=== PATIENT | male | born 1985 | race Caucasian/White ===

== ENCOUNTER → 2019-06-21 12:57 | Outpatient (POV) | payer SELFPAY | PROVIDERS: Visit Provider Dermatology | DX: Z00.00 Encounter for general adult medical examination without abnormal findings (principal) ==

== ENCOUNTER 2020-08-18 22:27 | Emergency (ER) | payer SELFPAY ==
[2020-08-18 22:28] VITALS: BP 128/67; PULSE 72; RESP 16; TEMP 36.7; O2SAT 97; BMI 39.0
--- NOTE | 2020-08-18 22:43 | PC.NURSE ---
spoke with jose at poison control. was advised if patient had only taken one extra dose of meds then he would be ok. vss. advised to tell doc and parents patient would be just a little sleepy
[2020-08-18 22:58] LABS: Basophils # 0.1 K/mm3 (0-0.2); Basophils % 0.9 % (0.1-2.0); Eosinophils # 0.4 K/mm3 (0.0-0.4); Eosinophils % 4.4 % (0.1-12.0); Hematocrit 41.8 % (42.0-52.0); Hemoglobin 12.8 g/dL (14.1-18.0); Lymphocytes # 2.1 K/mm3 (0.7-4.5); Lymphocytes % 23.6 % (10-50); Mean Corpuscular HGB Conc 30.6 g/dL (31.8-35.4); Mean Corpuscular Hemoglobin 23.5 pg (27.0-31.2); Mean Corpuscular Volume 76.8 fl (80-94); Mean Platelet Volume 7.2 fl (7.4-10.4); Monocytes # 0.7 K/mm3 (0.1-1.0); Monocytes % 7.8 % (1.7-9.3); Neutrophils # 5.8 K/mm3 (1.8-7.8); Neutrophils % 63.4 % (37.0-80.0); Platelet Count 325 K/mm3 (142-424); Red Blood Count 5.44 M/mm3 (4.60-6.20); Red Cell Distribution Width 18.8 % (11.5-17.5); White Blood Count 9.1 K/mm3 (4.8-10.8)
[2020-08-18 23:04] LABS: Alanine Aminotransferase 12 U/L (12-78); Albumin Level 4.3 g/dl (3.5-5.0); Albumin/Globulin Ratio 1.3 (1.1-1.8); Alkaline Phosphatase 147 U/L (38-126); Anion Gap 11.3 mEq/L (5-15); Aspartate Amino Transferase 27 U/L (17-59); Bilirubin,Total 0.2 mg/dl (0.2-1.3); Blood Urea Nitrogen 17 mg/dl (9-20); Calcium 9.3 mg/dl (8.4-10.2); Carbon Dioxide 29 mmol/L (22.0-30.0); Chloride 106 mmol/L (98-107); Creatinine Clearance Estimated 151 mL/min (50-200); Estimated Glomerular Filt Rate 98 ml/min (>60); GFR (African American) 118 ML/MIN (>60); Globulin 3.4 g/dL (1.3-3.2); Glucose 104 mg/dl (74-100); Potassium 4.3 mmoL/L (3.5-5.1); Sodium 142 mmol/L (136-145); Total Protein,Serum 7.7 g/dl (6.3-8.2)
--- NOTE | 2020-08-18 23:16 | [facility].EDOD ---
ED Disposition Clinical Impression: Accidental medication error Qualifiers: Encounter type: initial encounter Qualified Code(s): T50.901A - Poisoning by unspecified drugs, medicaments and biological substances, accidental (unintentional), initial encounter Disposition: Home, Self-Care Condition on Discharge: Good Instructions: Tips for Safely Using Medications Additional Instructions: see pcp for follow up Referrals: Jose C Williamson [Primary Care Provider] - - Critical Care Critical Care Time: No Attestation: On 08/18/20, the high probability of a clinically significant, sudden or life threatening deterioration of the following system(s) required my full and direct attention, intervention and personal management. The time I documented below is in addition to time spent performing reported procedures but includes the following listed in this critical care notation. Medical Decision Making - Medical Records Medical records reviewed: Yes: I reviewed the patient's medical records. - Reymundo Inquiry Pt receiving controlled substance: No Vital Signs: 08/18/20 22:28 Temperature 98.1 F Temperature Source Oral Pulse Rate [Left Radial] 72 Respiratory Rate 16 Blood Pressure [Right Arm] 128/67 Blood Pressure Mean [Right Arm] 87 Blood Pressure Source [Right Arm] Automatic Cuff Blood Pressure Position [Right Arm] Sitting 02 Sat by Pulse Oximetry 97 Oxygen Delivery Method Room Air - Lab Data Lab results reviewed: Yes: I reviewed the patient's lab results. Lab Results 08/18/20 22:52: WBC 9.1, RBC 5.44, Hgb 12.8 L, Hct 41.8 L, MCV 76.8 L, MCH 23.5 L, MCHC 30.6 L, RDW 18.8 H, Plt Count 325, MPV 7.2 L, Neut % (Auto) 63.4, Lymph % (Auto) 23.6, [place] % (Auto) 7.8, Eos % (Auto) 4.4, Baso % (Auto) 0.9, Neut # (Auto) 5.8, Lymph # (Auto) 2.1, [place] # (Auto) 0.7, Eos # (Auto) 0.4, Baso # (Auto) 0.1 08/18/20 22:52: Sodium 142, Potassium 4.3, Chloride 106, Carbon Dioxide 29, Anion Gap 11.3, BUN 17, Creatinine 0.90, Estimated Creat Clear 151, Estimated GFR 98, Est GFR ( Amer) 118, Glucose 104 H, Calcium 9.3, Total Bilirubin 0.2, AST 27, ALT 12, Alkaline Phosphatase 147 H, Total Protein 7.7, Albumin 4.3, Globulin 3.4 H, Albumin/Globulin Ratio 1.3 Result diagrams: 08/18/20 22:52 08/18/20 22:52 Overdose HPI - General Chief Complaint: Overdose Stated Complaint: Overdose Time Seen by Provider: 08/18/20 23:16 Mode of Arrival: Wheelchair Source of Information: Patient, Parent(s), Medical Record Limitations: No Limitations Description of Symptoms (Recalled from ER Triage Doc. by RN): pt mother stated her and the pts sister accidentally gave him an extra dose of his phenobarbital tonight - History of Present Illness HPI Narrative: pt with extra dose of phenobarb tonight - no other c/o or ingestions complaint: accidental overdose Onset (ago): hour(s) Timing confirmed by: family member Context: Accidental Overdose: medication error Treatments Prior to Arrival: none - Related Data Home Medications Medication Instructions Recorded Confirmed Gabapentin 800 mg PO QID 07/06/19 07/06/19 PHENobarbitaL [Phenobarbital] 90 mg PO BID 07/06/19 07/06/19 Allergies Allergy/AdvReac Type Severity Reaction Status Date / Time No Known Allergies Allergy Verified 07/06/19 09:28 [facility] History - Hepatitis A Screen Drug use history?: No High risk sexual behaviors?: No History of sexually transmitted infection?: No Currently employed?: No Childcare worker?: No Do you have indoor plumbing?: Yes Do you have electricity?: Yes Attestation statement:: This patient has been screened for Hepatitis A risk factors. I have reviewed the patient's past medical history: Yes Medical History: Reports:: Seizures Denies:: Cancer, Diabetes Mellitus Type 1, Diabetes Mellitus Type 2, MRSA Other Medical History: Denies: Blood Transfusion Reaction Comment: angelman disease, epilepsy Amputation: No Fractures: Yes (leg) - Social
[2020-08-18 23:31] VITALS: BP 132/79; PULSE 76; RESP 16; TEMP 36.7; O2SAT 96
== END 2020-08-18 23:33 | disposition home or self-care (01) ==
PROVIDERS: Emergency Provider Emergency Medicine; PCP Internal Medicine
DX: T42.3X1A Poisoning by barbiturates, accidental (unintentional), initial encounter (principal); Y92.009 Unspecified place in unspecified non-institutional (private) residence as the place of occurrence of the external cause; G40.909 Epilepsy, unspecified, not intractable, without status epilepticus
CPT/HCPCS: 80053; 80184; 85025; 99282

== ENCOUNTER 2023-12-23 09:17 | Outpatient (CLI) | payer SELFPAY ==
[2023-12-23 10:25] LABS: Chloride 108 mmol/L (98-107); Sodium 140 mmol/L (136-145)
[2023-12-23 10:26] LABS: Potassium 4.4 mmoL/L (3.5-5.1)
[2023-12-23 10:28] LABS: Alanine Aminotransferase 22 U/L (12-78); Albumin/Globulin Ratio 1.3 (1.1-1.8); Alkaline Phosphatase 139 U/L (38-126); Anion Gap 8.4 mEq/L (5-15); Aspartate Amino Transferase 37 U/L (17-59); Bilirubin,Total 0.3 mg/dl (0.2-1.3); Blood Urea Nitrogen 17 mg/dl (9-20); Carbon Dioxide 28 mmol/L (22.0-30.0); Estimated Glomerular Filt Rate 76 ml/min (>60); GFR (African American) 92 ML/MIN (>60); Glucose 116 mg/dl (74-100)
[2023-12-23 10:29] LABS: Calcium 9.4 mg/dl (8.4-10.2)
[2023-12-23 13:21] LABS: Basophils # 0.1 K/mm3 (0-0.2); Basophils % 1.1 % (0.1-2.0); Eosinophils # 0.4 K/mm3 (0.0-0.4); Eosinophils % 5.3 % (0.1-12.0); Hematocrit 45.5 % (42.0-52.0); Hemoglobin 14.6 g/dL (14.1-18.0); Lymphocytes # 1.6 K/mm3 (0.7-4.5); Mean Corpuscular HGB Conc 32.2 g/dL (31.8-35.4); Mean Corpuscular Hemoglobin 28.4 pg (27.0-31.2); Mean Corpuscular Volume 88.2 fl (80-94); Mean Platelet Volume 11.1 fl (7.4-10.4); Monocytes # 0.6 K/mm3 (0.1-1.0); Neutrophils # 5.3 K/mm3 (1.8-7.8); Neutrophils % 66.5 % (37.0-80.0); Platelet Count 198 K/mm3 (142-424); Red Blood Count 5.15 M/mm3 (4.60-6.20); Red Cell Distribution Width 17.2 % (11.5-17.5)
== END 2023-12-23 23:59 ==
LOC: LAB 09:18
PROVIDERS: PCP Internal Medicine; Visit Provider Internal Medicine
DX: Q93.51 Angelman syndrome (principal); G40.909 Epilepsy, unspecified, not intractable, without status epilepticus; D50.9 Iron deficiency anemia, unspecified
CPT/HCPCS: 36415; 80053; 80184; 85025